=== PATIENT | female | born 1990 | race African-American/Black ===

== ENCOUNTER 2019-12-12 17:59 | Emergency (ER) | payer BC ==
[~2019-12-12] VITALS: Ht 162.6 cm; Wt 77.1 kg
[2019-12-12 18:03] VITALS: BP 119/89; Ht 162.6 cm; Wt 77.1 kg
== END 2019-12-12 19:22 | disposition home or self-care (01) ==
LOC: ED 17:59
DX: K58.9 Irritable bowel syndrome, unspecified (principal); J45.909 Unspecified asthma, uncomplicated; Z88.8 Allergy status to other drugs, medicaments and biological substances; Z88.6 Allergy status to analgesic agent; Z91.013 Allergy to seafood
CPT/HCPCS: J1720; J7030

== ENCOUNTER 2020-06-17 10:19 | Emergency (ER) | payer BC ==
[~2020-06-17] VITALS: Ht 160 cm; Wt 75.3 kg
[2020-06-17 10:25] VITALS: Ht 160 cm; Wt 75.3 kg
[2020-06-17 10:52] LABS: microscopic required? NO
[2020-06-17 11:05] LABS: UA SPECIFIC GRAVITY 1.025 (1.005-1.035); urine erythrocyte NEGATIVE (NEGATIVE)
[2020-06-17 11:10] LABS: CALCIUM 8.7 mg/dL (8.5-10.1); CHLORIDE SERUM 103 mmol/L (98-107); CREATININE SERUM 0.7 mg/dL (0.6-1.0); GFR1 > 60 mL/min; GLUCOSE SERUM 88 mg/dL (74-106); POTASSIUM SERUM 3.8 mmol/L (3.5-5.1); SODIUM SERUM 136 mmol/L (136-145)
[2020-06-17 11:14] LABS: ALBUMIN 3.6 g/dL (3.4-5.0); ALKALINE PHOSPHATASE 58 U/L (46-116); ALT/SGPT 17 U/L (14-59); AST/SGOT 13 U/L (15-37); BILIRUBIN TOTAL 0.5 mg/dL (0.20-1.00); LIPASE 69 IU/L (73-393)
[2020-06-17 11:26] LABS: BASOPHIL % 0.4 % (0-2); PLATELET COUNT 191 x10^3mcL (130-400); RED CELL DISTRIBUTION WIDTH 13.3 % (11.5-14.5)
[2020-06-17 12:43] VITALS: BP 110/76
== END 2020-06-17 12:43 | disposition home or self-care (01) ==
LOC: ED 10:19
PROVIDERS: Emergency Medicine
DX: K50.90 Crohn's disease, unspecified, without complications (principal); J45.909 Unspecified asthma, uncomplicated; Z98.890 Other specified postprocedural states; Z88.6 Allergy status to analgesic agent; Z91.013 Allergy to seafood
CPT/HCPCS: J0500; J7030